=== PATIENT | female | born 1955 | race Caucasian/White ===

== ENCOUNTER 2022-08-22 04:34 | Emergency (ER) | payer OTHER ==
[2022-08-22 04:49] VITALS: BP 141/84; PULSE 111; RESP 16; TEMP 98; BMI 20.9
[2022-08-22] MEDS ORDERED: ONDANSETRON 4 MG/2 ML VIAL IVPB ONE (05:06)
[2022-08-22] MEDS ORDERED: SODIUM CHLORIDE 1,000 ML IV ONE ×2 (05:06→06:26)
[2022-08-22] MEDS ORDERED: ACETAMINOPHEN 1000 MG/100 ML BAG IVPB ONE (05:06)
[2022-08-22] MEDS ORDERED: ACETAMINOPHEN INJECTION 100 ML IVPB ONE (05:11)
[2022-08-22] MEDS ORDERED: ONDANSETRON 4 MG/2 ML VIAL ONE (05:11)
[2022-08-22 06:23] LABS: HEMOGLOBIN 12.5 GM/dL (10.7-15.3); MCH 29.7 pg (25.7-33.7); MCHC 32.9 g/dl (32.0-36.0); MEAN CELL VOLUME 90.4 fl (80-96); MEAN PLT VOLUME 7.9 fl (7.5-11.1); PLATELET COUNT 233 10^3/uL (134-434); RBC 4.21 M/mm3 (3.60-5.2); RDW 12.8 % (11.6-15.6); WHITE BLOOD COUNT 4.8 K/mm3 (4.0-10.0)
[2022-08-22 06:43] LABS: ALBUMIN 3.6 g/dl (3.4-5.0); CALCIUM 9.3 mg/dL (8.5-10.1)
[2022-08-22 06:47] LABS: CREATININE 0.5 mg/dL (0.55-1.3)
[2022-08-22 06:48] LABS: BILIRUBIN,TOTAL 0.4 mg/dL (0.2-1); TOT PROT 6.8 g/dl (6.4-8.2)
== END 2022-08-22 07:23 | disposition home or self-care (01) ==
LOC: FER 04:34
PROC: 3E0333Z Introduction of Anti-inflammatory into Peripheral Vein, Percutaneous Approach (ICD-10-PCS; principal; 2022-08-22)
PROC: 3E033GC Introduction of Other Therapeutic Substance into Peripheral Vein, Percutaneous Approach (ICD-10-PCS; 2022-08-22)
PROC: 3E0337Z Introduction of Electrolytic and Water Balance Substance into Peripheral Vein, Percutaneous Approach (ICD-10-PCS; 2022-08-22)
PROC: 3E0337Z Introduction of Electrolytic and Water Balance Substance into Peripheral Vein, Percutaneous Approach (ICD-10-PCS; 2022-08-22)
DX: R11.2 Nausea with vomiting, unspecified (principal); R19.7 Diarrhea, unspecified; E86.0 Dehydration
CPT/HCPCS: 36415; 80053; 85027; 99284-25